=== PATIENT | male | born 1995 | race Caucasian/White ===

== ENCOUNTER 2022-02-13 08:14 | Emergency (ER) | payer BC ==
[2022-02-13] MEDS ORDERED: Sodium Chloride 0.9% 1,000 ML IV ONE (08:30)
[2022-02-13] MEDS ORDERED: Famotidine 20 MG/2 ML SDV IVPUSH ONE (08:30)
[2022-02-13] MEDS ORDERED: Alum Hydro/Mag Hydro/Simeth XS 15 ML, Lidocaine 2% 5 ML PO ONE ×2 (08:31)
[2022-02-13 09:11] LABS: BLOOD UREA NITROGEN,BUN 11 mg/dL (7.0-18.0); CARBON DIOXIDE,CO2 24.2 mmol/L (21.0-32.0); CHLORIDE,CL 100 mmol/L (98-107); GLUCOSE RANDOM 113 mg/dL (74-106); LIPASE 83 U/L (73-393); POTASSIUM,K 3.3 mmol/L (3.5-5.1); SODIUM,NA 137 mmol/L (136-148)
== END 2022-02-13 10:20 | disposition home or self-care (01) ==
LOC: MW.ED 08:14
DX: R00.2 Palpitations (principal); Z20.822 Contact with and (suspected) exposure to COVID-19
CPT/HCPCS: 36415; 71045; 71045-26; 80053; 83690; 83735; 84484; 85025; 85379; 93005; 96374; 99285-25; A9270-GY; J3490; J7030; U0002